=== PATIENT | female | born 1980 | race African-American/Black ===

== ENCOUNTER 2016-07-16 19:36 | Emergency (ER) | payer SELFPAY ==
[~2016-07-16] VITALS: Ht 162.6 cm; Wt 49.6 kg
[~2016-07-16 19:36] MED LIST: AMOX/K CLAV875 M1 PO; BUTALBITAL/ACETAMIN1 OR; KEFLEX500 M1 PO; NAPROSYN500 MG OR; NO HOME MEDS; PYRIDIUM200 MG PO; TRAMADOL HCL50 MG OR; ULTRAM50 M1 PO
[2016-07-16 21:50] LABS: HEMATOCRIT 21.4 % (37.0-47.0); IMMATURE GRANULOCYTES 1.3 % (0.0-1.0); MEAN CELL VOLUME 83.9 fL CALC (80.0-100.0); MEAN CORPUSCULAR HGB 27.1 pG CALC (26.0-32.0); MEAN CORPUSCULAR HGB CONC 32.2 g/L CALC (32.0-36.0); NEUT# 6.05 thou/uL (2.00-7.15); RED BLOOD COUNT 2.55 mill/uL (4.20-5.60); RED CELL DISTRI WIDTH 14.3 % (11.5-15.5)
[2016-07-16 21:52] LABS: ALBUMIN 3.4 g/dL (3.2-5.0); ALKALINE PHOSPHATASE 64 u/l (38-126); AMYLASE 113 u/l (30-110); ANION GAP 14 (6-22 (CALC)); BILIRUBIN, TOTAL 0.4 mg/dL (0.0-1.4); BUN 10 mg/dL (7-17); BUN/CREATININE RATIO 14 (12-20 (CALC)); CALCIUM 8.7 mg/dL (8.4-10.2); CARBON DIOXIDE 24 mmol/l (22-30); CHLORIDE 102 mmol/l (95-108); CREATININE 0.7 mg/dL (0.5-1.0); GFR > 60 ML/MIN (>=60 (CALC)); GFR FOR AFR.AMER. > 60 ML/MIN (>=60 (CALC)); GLUCOSE 97 mg/dL (65-105); LIPASE 360 u/l (23-300); POTASSIUM 3.6 mmol/l (3.5-5.1); SGOT/AST 36 u/l (14-36); SGPT/ALT 29 u/l (9-52); SODIUM 136 mmol/l (137-146); TOTAL PROTEIN 6.6 g/dL (6.3-8.2)
[2016-07-16 21:58] LABS: HEMOGLOBIN 6.9 g/dl (12.0-16.0)
[2016-07-16 23:09] LABS: URINE BILIRUBIN - DIPSTICK NEGATIVE (NEGATIVE); URINE BLOOD DIPSTICK NEGATIVE (NEGATIVE); URINE CLARITY SLIGHT CLOUDY; URINE COLOR YELLOW; URINE GLUCOSE - DIPSTICK NEGATIVE (NEGATIVE); URINE KETONE 15 mg/dL (NEGATIVE); URINE NITRITE - DIPSTICK NEGATIVE (Negative); URINE PROTEIN - DIPSTICK TRACE mg/dL (NEG-TRACE)
[2016-07-17 00:06] LABS: URINE BACTERIA MANY hpf; URINE LEUK ESTERASE SMALL (NEGATIVE); URINE RBC 0-2 RBC/hpf (0-5); URINE SQUAMOUS EPITHELIAL CELL FEW EPI/hpf (0-FEW)
[2016-07-17 01:34] VITALS: BP 105/53
== END 2016-07-17 01:19 | disposition short-term general hospital (02) | DRG 379 ==
LOC: ED 19:36
PROVIDERS: Emergency Medicine
DX: K92.2 Gastrointestinal hemorrhage, unspecified (principal); T18.8XXA Foreign body in other parts of alimentary tract, initial encounter; R10.11 Right upper quadrant pain; R11.0 Nausea
CPT/HCPCS: S0164

== ENCOUNTER 2018-09-12 19:11 | Emergency (ER) | payer SELFPAY ==
[~2018-09-12] VITALS: Ht 162.6 cm; Wt 49.0 kg
[2018-09-12 20:19] LABS: HEMATOCRIT 36.4 % (37.0-47.0); HEMOGLOBIN 12.1 g/dl (12.0-16.0); IMMATURE GRANULOCYTES 0.4 % (0.0-5.0); MEAN CELL VOLUME 92.6 fL CALC (80.0-100.0); MEAN CORPUSCULAR HGB 30.8 pG CALC (26.0-32.0); MEAN CORPUSCULAR HGB CONC 33.2 g/L CALC (32.0-36.0); NEUT# 4.71 thou/uL (2.00-7.15); RED BLOOD COUNT 3.93 mill/uL (4.20-5.60); RED CELL DISTRI WIDTH 12.5 % (11.5-15.5)
[2018-09-12 20:39] LABS: ALBUMIN 3.9 g/dL (3.2-5.0); ALKALINE PHOSPHATASE 67 u/l (38-126); AMYLASE 86 u/l (30-110); ANION GAP 12 (6-22 (CALC)); BUN 14 mg/dL (7-17); BUN/CREATININE RATIO 24 (12-20 (CALC)); CARBON DIOXIDE 23 mmol/l (22-30); CHLORIDE 107 mmol/l (95-108); CREATININE 0.6 mg/dL (0.5-1.0); GFR > 60 ML/MIN (>=60 (CALC)); GFR FOR AFR.AMER. > 60 ML/MIN (>=60 (CALC)); LIPASE 54 u/l (23-300); POTASSIUM 3.7 mmol/l (3.5-5.1); SGOT/AST 14 u/l (14-36); SODIUM 138 mmol/l (137-146); TOTAL PROTEIN 6.7 g/dL (6.3-8.2)
[2018-09-12 20:41] LABS: BILIRUBIN, TOTAL 1.1 mg/dL (0.0-1.4)
[2018-09-12 21:38] LABS: URINE BILIRUBIN - DIPSTICK NEGATIVE (NEGATIVE); URINE BLOOD DIPSTICK SMALL (NEGATIVE); URINE COLOR YELLOW; URINE GLUCOSE - DIPSTICK NEGATIVE (NEGATIVE); URINE KETONE 15 mg/dL (NEGATIVE); URINE LEUK ESTERASE NEGATIVE (NEGATIVE); URINE NITRITE - DIPSTICK NEGATIVE (Negative); URINE PH 5.5 (4.5-8.0); URINE PROTEIN - DIPSTICK NEGATIVE (NEG-TRACE)
[2018-09-12 21:52] LABS: URINE SQUAMOUS EPITHELIAL CELL FEW EPI/hpf (0-FEW)
[2018-09-12] MEDS ORDERED: PROTONIX40 MG PO (23:25)
[2018-09-12 23:32] VITALS: BP 99/60
== END 2018-09-12 23:32 | disposition home or self-care (01) | DRG 392 ==
LOC: ED 19:11
PROVIDERS: Family Medicine
DX: K29.70 Gastritis, unspecified, without bleeding (principal)
CPT/HCPCS: Q9967; S0164

== ENCOUNTER 2018-09-17 20:41 | Emergency (ER) | payer SELFPAY ==
[~2018-09-17] VITALS: Ht 162.6 cm; Wt 48.0 kg
[~2018-09-17 20:41] MED LIST changes: +PROTONIX40 MG PO
[2018-09-17 21:42] LABS: HEMATOCRIT 32.2 % (37.0-47.0); HEMOGLOBIN 10.8 g/dl (12.0-16.0); IMMATURE GRANULOCYTES 0.4 % (0.0-5.0); MEAN CORPUSCULAR HGB 30.9 pG CALC (26.0-32.0); MEAN CORPUSCULAR HGB CONC 33.5 g/L CALC (32.0-36.0); NEUT# 8.3 thou/uL (2.00-7.15); RED BLOOD COUNT 3.5 mill/uL (4.20-5.60); RED CELL DISTRI WIDTH 12.7 % (11.5-15.5)
[2018-09-17 21:44] LABS: URINE BLOOD DIPSTICK NEGATIVE (NEGATIVE); URINE GLUCOSE - DIPSTICK NEGATIVE (NEGATIVE); URINE KETONE TRACE mg/dL (NEGATIVE); URINE LEUK ESTERASE NEGATIVE (NEGATIVE); URINE NITRITE - DIPSTICK NEGATIVE (Negative); URINE PROTEIN - DIPSTICK 30 mg/dL (NEG-TRACE); URINE SPECIFIC GRAVITY >=1.030
[2018-09-17 21:46] LABS: URINE BILIRUBIN - DIPSTICK NEGATIVE (NEGATIVE); URINE COLOR DK. YELLOW
[2018-09-17 21:53] LABS: URINE MUCUS MANY hpf (NONE-FEW); URINE RBC 0-2 RBC/hpf (0-5); URINE SQUAMOUS EPITHELIAL CELL FEW EPI/hpf (0-FEW); URINE WBC 0-2 WBC/hpf (0-5)
[2018-09-17 21:59] LABS: ALKALINE PHOSPHATASE 72 u/l (38-126); AMYLASE 35 u/l (30-110); ANION GAP 16 (6-22 (CALC)); BILIRUBIN, TOTAL 0.7 mg/dL (0.0-1.4); BUN 21 mg/dL (7-17); BUN/CREATININE RATIO 35 (12-20 (CALC)); CARBON DIOXIDE 24 mmol/l (22-30); CHLORIDE 101 mmol/l (95-108); CREATININE 0.6 mg/dL (0.5-1.0); GFR > 60 ML/MIN (>=60 (CALC)); GFR FOR AFR.AMER. > 60 ML/MIN (>=60 (CALC)); LIPASE 34 u/l (23-300); POTASSIUM 3.8 mmol/l (3.5-5.1); SGOT/AST 12 u/l (14-36); SODIUM 137 mmol/l (137-146); TOTAL PROTEIN 6.8 g/dL (6.3-8.2)
[2018-09-18 00:47] LABS: PROTHROMBIN TIME 10.7 SECONDS (9.0-12.5)
[2018-09-18 05:33] VITALS: BP 91/73
== END 2018-09-18 05:28 | disposition short-term general hospital (02) | DRG 379 ==
LOC: ED 20:41
PROVIDERS: Emergency Medicine
DX: K92.2 Gastrointestinal hemorrhage, unspecified (principal); R19.5 Other fecal abnormalities; R11.10 Vomiting, unspecified; R10.9 Unspecified abdominal pain
CPT/HCPCS: S0164

== ENCOUNTER 2021-02-07 23:59 | Emergency (ER) | payer SELFPAY ==
[~2021-02-07] VITALS: Ht 162.6 cm; Wt 50.0 kg
[2021-02-08 00:48] LABS: HEMATOCRIT 33.3 % (37.0-47.0); HEMOGLOBIN 10.3 g/dl (12.0-16.0); IMMATURE GRANULOCYTES 0.5 % (0.0-5.0); MEAN CORPUSCULAR HGB 25.8 pG CALC (26.0-32.0); MEAN CORPUSCULAR HGB CONC 30.9 g/dL CAL (32.0-36.0); NEUT# 4.78 thou/uL (2.00-7.15); RED BLOOD COUNT 3.99 mill/uL (4.20-5.60)
[2021-02-08 00:49] LABS: URINE BILIRUBIN - DIPSTICK NEGATIVE (NEGATIVE); URINE BLOOD DIPSTICK TRACE-INTACT (NEGATIVE); URINE COLOR YELLOW; URINE GLUCOSE - DIPSTICK NEGATIVE (NEGATIVE); URINE KETONE 15 mg/dL (NEGATIVE); URINE LEUK ESTERASE NEGATIVE (NEGATIVE); URINE PROTEIN - DIPSTICK NEGATIVE (NEG-TRACE); URINE SPECIFIC GRAVITY 1.015; URINE UROBILINOGEN - DIPSTICK 0.2 E.U./dL (0.2)
[2021-02-08 00:51] LABS: MEAN CELL VOLUME 83.5 fL CALC (80.0-100.0)
[2021-02-08 00:54] LABS: URINE NITRITE - DIPSTICK NEGATIVE (Negative)
[2021-02-08 01:06] LABS: ALBUMIN 3.5 g/dL (3.2-5.0); ALKALINE PHOSPHATASE 61 u/l (38-126); AMYLASE 105 u/l (30-110); ANION GAP 10 (6-22 (CALC)); BILIRUBIN, TOTAL 0.6 mg/dL (0.0-1.4); BUN 11 mg/dL (7-17); BUN/CREATININE RATIO 17 (12-20 (CALC)); CARBON DIOXIDE 26 mmol/l (22-30); CHLORIDE 104 mmol/l (95-108); CREATININE 0.7 mg/dL (0.5-1.0); GFR > 60 ML/MIN (>=60 (CALC)); GFR FOR AFR.AMER. > 60 ML/MIN (>=60 (CALC)); LIPASE 100 u/l (23-300); POTASSIUM 4.3 mmol/l (3.5-5.1); SGOT/AST 18 u/l (14-36); SODIUM 136 mmol/l (137-146); TOTAL PROTEIN 6.8 g/dL (6.3-8.2)
[2021-02-08] MEDS ORDERED: ONDANSETRON4 MG PO (06:58)
[2021-02-08] MEDS ORDERED: ULTRAM50 M1 PO (06:58)
[2021-02-08] MEDS ORDERED: PREVACID30 M3 PO (06:58)
[2021-02-08 07:48] VITALS: BP 123/67
== END 2021-02-08 07:48 | disposition home or self-care (01) | DRG 392 ==
LOC: ED 23:59
PROVIDERS: Emergency Medicine
DX: K29.70 Gastritis, unspecified, without bleeding (principal); Z87.11 Personal history of peptic ulcer disease; Z20.822 Contact with and (suspected) exposure to COVID-19

== ENCOUNTER 2021-02-11 08:44 | Inpatient (IN) | payer SELFPAY ==
[~2021-02-11] VITALS: Ht 162.6 cm; Wt 62.0 kg
[2021-02-11] VITALS (8 sets, daily range): BP systolic 95–107; BP diastolic 55–69
[~2021-02-11 08:44] MED LIST changes: +ONDANSETRON4 MG PO; +PREVACID30 M3 PO
[2021-02-11 09:30] LABS: HEMATOCRIT 29.7 % (37.0-47.0); HEMOGLOBIN 9.2 g/dl (12.0-16.0); IMMATURE GRANULOCYTES 0.1 % (0.0-5.0); MEAN CELL VOLUME 85.6 fL CALC (80.0-100.0); MEAN CORPUSCULAR HGB 26.5 pG CALC (26.0-32.0); NEUT# 5.59 thou/uL (2.00-7.15); RED BLOOD COUNT 3.47 mill/uL (4.20-5.60); RED CELL DISTRI WIDTH 15.7 % (11.5-15.5)
[2021-02-11 09:32] LABS: URINE BILIRUBIN - DIPSTICK NEGATIVE (NEGATIVE); URINE BLOOD DIPSTICK NEGATIVE (NEGATIVE); URINE COLOR YELLOW; URINE GLUCOSE - DIPSTICK NEGATIVE (NEGATIVE); URINE KETONE NEGATIVE (NEGATIVE); URINE LEUK ESTERASE NEGATIVE (NEGATIVE); URINE PROTEIN - DIPSTICK NEGATIVE (NEG-TRACE); URINE SPECIFIC GRAVITY >=1.030; URINE UROBILINOGEN - DIPSTICK 0.2 E.U./dL (0.2)
[2021-02-11 09:35] LABS: URINE NITRITE - DIPSTICK NEGATIVE (Negative)
[2021-02-11 09:49] LABS: ALBUMIN 3.4 g/dL (3.2-5.0); ALKALINE PHOSPHATASE 57 u/l (38-126); AMYLASE 63 u/l (30-110); ANION GAP 11 (6-22 (CALC)); BILIRUBIN, TOTAL 0.5 mg/dL (0.0-1.4); BUN 8 mg/dL (7-17); BUN/CREATININE RATIO 13 (12-20 (CALC)); CARBON DIOXIDE 27 mmol/l (22-30); CHLORIDE 101 mmol/l (95-108); CREATININE 0.6 mg/dL (0.5-1.0); GFR > 60 ML/MIN (>=60 (CALC)); GFR FOR AFR.AMER. > 60 ML/MIN (>=60 (CALC)); LIPASE 104 u/l (23-300); POTASSIUM 3.8 mmol/l (3.5-5.1); SGOT/AST 17 u/l (14-36); SODIUM 136 mmol/l (137-146); TOTAL PROTEIN 6.5 g/dL (6.3-8.2)
[2021-02-11] MEDS ORDERED: ALEVE220 M1 PO (12:04)
[2021-02-11 19:56] LABS: HEMOGLOBIN 7.3 g/dl (12.0-16.0)
[2021-02-12] VITALS (12 sets, daily range): BP systolic 87–104; BP diastolic 49–63
[2021-02-12 05:57] LABS: HEMATOCRIT 22.4 % (37.0-47.0); HEMOGLOBIN 7.1 g/dl (12.0-16.0); IMMATURE GRANULOCYTES 0.6 % (0.0-5.0); MEAN CELL VOLUME 84.2 fL CALC (80.0-100.0); MEAN CORPUSCULAR HGB 26.7 pG CALC (26.0-32.0); MEAN CORPUSCULAR HGB CONC 31.7 g/dL CAL (32.0-36.0); NEUT# 5.85 thou/uL (2.00-7.15); RED BLOOD COUNT 2.66 mill/uL (4.20-5.60); RED CELL DISTRI WIDTH 15.9 % (11.5-15.5)
[2021-02-13 00:49] VITALS: BP 95/58
[2021-02-13 04:00] VITALS: BP 91/55
[2021-02-13 04:52] LABS: HEMATOCRIT 29.9 % (37.0-47.0); HEMOGLOBIN 9.9 g/dl (12.0-16.0)
[2021-02-13 07:00] VITALS: BP 94/59
[2021-02-13 15:48] VITALS: BP 101/50
[2021-02-13 18:38] LABS: HEMATOCRIT 32.8 % (37.0-47.0); HEMOGLOBIN 10.8 g/dl (12.0-16.0)
[2021-02-13 19:00] VITALS: BP 93/60
[2021-02-14 04:00] VITALS: BP 89/51
[2021-02-14] MEDS ORDERED: OMEPRAZOLE20 MG PO (07:14)
[2021-02-14 08:52] VITALS: BP 88/51
== END 2021-02-14 12:09 | disposition home or self-care (01) | DRG 379 ==
LOC: ED 08:44 → ORM 09:34 → MS2 13:36
PROVIDERS: Emergency Medicine; ADMIT Surgery; ATTEND Surgery
PROC: 0DJ08ZZ Inspection of Upper Intestinal Tract, Via Natural or Artificial Opening Endoscopic (ICD-10-PCS; principal; 2021-02-11)
PROC: 30233N1 Transfusion of Nonautologous Red Blood Cells into Peripheral Vein, Percutaneous Approach (ICD-10-PCS; 2021-02-12)
PROC: 30233N1 Transfusion of Nonautologous Red Blood Cells into Peripheral Vein, Percutaneous Approach (ICD-10-PCS; 2021-02-12)
DX: K25.4 Chronic or unspecified gastric ulcer with hemorrhage (principal); D64.9 Anemia, unspecified; K44.9 Diaphragmatic hernia without obstruction or gangrene; Z87.11 Personal history of peptic ulcer disease
CPT/HCPCS: P9016; S0164

== ENCOUNTER 2023-11-04 20:53 | Emergency (ER) | payer SELFPAY ==
[~2023-11-04] VITALS: Ht 162.6 cm; Wt 52.0 kg
[~2023-11-04 20:53] MED LIST changes: +ALEVE220 M1 PO; +OMEPRAZOLE20 MG PO
[2023-11-04] MEDS ORDERED: SODIUM CHLORIDE 0.9% 1,000 ML IV STA (21:15)
[2023-11-04] MEDS ORDERED: Pantoprazole Sodium 40 MG VIAL (Protonix) IV STA (21:15)
[2023-11-04] MEDS ORDERED: ONDANSETRON HCl 4 MG/2 ML SDV IV STA (21:15)
[2023-11-04] MEDS ORDERED: KETOROLAC TROMETHAMINE 15 MG/ML SDV IV STA (21:15)
[2023-11-04] MEDS ORDERED: FAMOTIDINE 10MG/ML 2ML SDV IV ONE (21:20)
[2023-11-04] MEDS ORDERED: DICYCLOMINE HCL 10 MG/CAP PO ONE (21:20)
[2023-11-04 21:50] LABS: BASO% 0.3 % (0-3); EOS% 0.3 % (0-8); IMMATURE GRANULOCYTES 0.1 % (0.0-5.0); LYMPH% 24.5 % (15-41); MEAN CELL VOLUME 82.4 fL CALC (80.0-100.0); MEAN CORPUSCULAR HGB 25.9 pG CALC (26.0-32.0); MEAN CORPUSCULAR HGB CONC 31.4 g/dL CAL (32.0-36.0); MONO% 7.3 % (2-13); NEUT# 5.38 thou/uL (2.00-7.15); NEUT% 67.5 % (42-76); RED BLOOD COUNT 4.25 mill/uL (4.20-5.60); RED CELL DISTRI WIDTH 15.2 % (11.5-15.5)
[2023-11-04 22:03] VITALS: BP 132/94
[2023-11-04 22:05] LABS: ALBUMIN 3.9 g/dL (3.2-5.0); BILIRUBIN, TOTAL 0.6 mg/dL (0.02-1.3); CREATININE 0.7 mg/dL (0.5-1.0); POTASSIUM 3.9 mmol/l (3.5-5.1); TOTAL PROTEIN 7.3 g/dL (6.3-8.2)
[2023-11-04 22:15] VITALS: BP 143/92
[2023-11-04 22:30] VITALS: BP 130/87
[2023-11-04 22:46] VITALS: BP 139/90
[2023-11-04] MEDS ORDERED: DIATRIZOATE MEGLUMINE & SODIUM 30 ML/BTL BTL PO ONE (22:55)
[2023-11-05] MEDS ORDERED: METOCLOPRAMIDE HCL 10 MG/2 ML SDV IV ONE (02:10)
[2023-11-05] MEDS ORDERED: OMEPRAZOLE DR40 MG PO (02:17)
[2023-11-05] MEDS ORDERED: PEPCID20 MG PO (02:17)
[2023-11-05] MEDS ORDERED: ZOFRAN4 MG/TAB PO (02:17)
[2023-11-05] MEDS ORDERED: REGLAN10 MG PO (02:17)
[2023-11-05 02:40] VITALS: BP 139/90
[2023-11-05] MEDS ORDERED: OMEPRAZOLE20 MG PO (12:24)
== END 2023-11-05 02:40 | disposition home or self-care (01) | DRG 446 ==
LOC: ED 20:53
PROVIDERS: Internal Medicine
DX: K80.20 Calculus of gallbladder without cholecystitis without obstruction (principal); Z87.11 Personal history of peptic ulcer disease
CPT/HCPCS: J2470; Q9967

== ENCOUNTER 2023-11-10 19:45 | Observation (INO) | payer SELFPAY ==
[~2023-11-10] VITALS: Ht 162.6 cm; Wt 49.8 kg
[~2023-11-10 19:45] MED LIST changes: +OMEPRAZOLE DR40 MG PO; +PEPCID20 MG PO; +REGLAN10 MG PO; +ZOFRAN4 MG/TAB PO
--- NOTE | 2023-11-10 20:39 | NUR ---
PT TO ER BED 5 FOR TRIAGE AT THIS TIME WITH AN EVEN AND STEADY GAIT IN NO APPARENT DISTRESS. CALL LIGHT WITHIN REACH AND PT AWAITING EDP EXAM.
[2023-11-10] MEDS ORDERED: Pantoprazole Sodium 40 MG VIAL (Protonix) IV STA (20:53)
[2023-11-10] MEDS ORDERED: PROMETHAZINE HCL 25 MG/ML AMP IV ONE (20:55)
[2023-11-10] MEDS ORDERED: KETOROLAC TROMETHAMINE 30 MG/ML SDV IV ONE (20:55)
--- NOTE | 2023-11-10 21:35 | NUR ---
PT SITTING IN RM AWAITING RESULTS AT THIS TIME. CALL LIGHT WITHIN REACH AND PT HAS NO NEEDS OR CONCERNS AT THIS TIME.
[2023-11-10 21:43] LABS: BASO% 0.2 % (0-3); EOS% 0.3 % (0-8); HEMOGLOBIN 10.9 g/dl (12.0-16.0); IMMATURE GRANULOCYTES 0.2 % (0.0-5.0); LYMPH% 18.1 % (15-41); MEAN CELL VOLUME 81.5 fL CALC (80.0-100.0); MEAN CORPUSCULAR HGB 26.1 pG CALC (26.0-32.0); MEAN CORPUSCULAR HGB CONC 32.1 g/dL CAL (32.0-36.0); MONO% 7.1 % (2-13); NEUT# 6.9 thou/uL (2.00-7.15); NEUT% 74.1 % (42-76); RED BLOOD COUNT 4.17 mill/uL (4.20-5.60); RED CELL DISTRI WIDTH 15.1 % (11.5-15.5)
[2023-11-10] MEDS ORDERED: SODIUM CHLORIDE 0.9% 1,000 ML IV STA (21:51)
[2023-11-10 21:55] LABS: BILIRUBIN, TOTAL 0.9 mg/dL (0.02-1.3); CREATININE 0.6 mg/dL (0.5-1.0); POTASSIUM 3.5 mmol/l (3.5-5.1); TOTAL PROTEIN 7.1 g/dL (6.3-8.2)
--- NOTE | 2023-11-10 22:41 | NUR ---
PT SITTING IN RM AWAITING RESULTS AT THIS TIME. CALL LIGHT WITHIN REACH AND PT HAS NO NEEDS OR CONCERNS AT THIS TIME.
--- NOTE | 2023-11-10 23:31 | NUR ---
PT SITTING IN RM AWAITING RESULTS AT THIS TIME. CALL LIGHT WITHIN REACH AND PT HAS NO NEEDS OR CONCERNS AT THIS TIME.
[2023-11-11] VITALS (18 sets, daily range): BP systolic 91–116; BP diastolic 31–72
[2023-11-11 00:30] LABS: URINE BILIRUBIN - DIPSTICK Negative (NEGATIVE); URINE BLOOD DIPSTICK Trace-lysed (NEGATIVE); URINE COLOR Yellow; URINE GLUCOSE - DIPSTICK Negative (NEGATIVE); URINE KETONE 80 mg/dL (NEGATIVE); URINE LEUK ESTERASE Moderate (NEGATIVE); URINE PROTEIN - DIPSTICK Negative (NEG-TRACE); URINE SPECIFIC GRAVITY 1.015
[2023-11-11 00:31] LABS: URINE NITRITE - DIPSTICK Negative (Negative)
[2023-11-11] MEDS ORDERED: KETOROLAC TROMETHAMINE 30 MG/ML SDV IV PRN (00:35)
[2023-11-11] MEDS ORDERED: FAMOTIDINE 10MG/ML 2ML SDV IV PRN (00:35)
[2023-11-11] MEDS ORDERED: PROMETHAZINE HCL 25 MG/ML AMP IV PRN (00:35)
[2023-11-11] MEDS ORDERED: ONDANSETRON HCl 4 MG/2 ML SDV IV PRN (00:35)
[2023-11-11] MEDS ORDERED: MORPHINE SULFATE 4 MG/ML VIAL IV PRN (00:35)
[2023-11-11] MEDS ORDERED: DEXTROSE 5% / 0.9% NACL 1,000 ML IV PRN (00:35)
[2023-11-11 00:40] LABS: URINE EPITHELIAL CELLS MODERATE EPI/hpf (0-FEW)
[2023-11-11 00:41] LABS: URINE BACTERIA MODERATE hpf
--- NOTE | 2023-11-11 00:45 | NUR ---
PT RESTING IN RM AWAITING ADMISSION AT THIS TIME WITH NO COMPLAINTS OR CONCERNS. CALL JULIANA VERGARA.
--- NOTE | 2023-11-11 01:08 | NUR ---
REPORT GIVEN TO ROMA RUSSELL AND PT TO BE TRANSPORTED TO MED SURG RM 279. PT RESTING IN RM. CALL LIGHT WITHIN REACH AND PT HAS NO NEEDS OR CONCERNS.
--- NOTE | 2023-11-11 01:38 | NUR ---
Admission Note Report Given to: ROMA RUSSELL Transported by: X Wheelchair Stretcher Transported with: Nurse X Transporter X Patent IV O2 Form Building Supervisor Location: ICU X [facility]
--- NOTE | 2023-11-11 02:26 | NUR ---
RECEIVED REPORT FROM NURSE MATTHIAS PINO TRANSPORTED VIA WHEELCHAIR, ARRIVED MS UNIT AT 0140, P[ATIENT ALERT ORIENTED AMBULATORY, PATIENT IV ON LFA G 20 STARTED D5NS AT 200CC/HR PER ORDER INFUSING WELL, PATIENT C/O CRAMPING ABDOMINAL PAIN UNRELIEVED BY TORADOL, WILL MEDICATE, PATIENT INSTRUCTED ON NPO DIET, ADMISSION ASSESSMENT COMPLETED, PATIENT ORIENTED TO ROOM AND AND CALL [employer].
--- NOTE | 2023-11-11 04:50 | NUR ---
PATIENTR RESTING IN BED, REMAINS NPO, BREATHING EVN UNLABORED CALL LIGHT IN REACHED.
[2023-11-11] MEDS ORDERED: SODIUM CHLORIDE 1,000 ML BTL IR ONE (07:39)
[2023-11-11] MEDS ORDERED: STERILE WATER FOR IRRIGATION 1,000 ML BTL IR ONE (07:39)
[2023-11-11] MEDS ORDERED: LIDOcaine HCl 1% (Local Anesth.) 20 ML VIAL ONE (07:39)
[2023-11-11] MEDS ORDERED: PROPOFOL 200 MG/20 ML VIAL IV ONE (07:50)
[2023-11-11] MEDS ORDERED: LIDOCAINE HCL 2% 2ML SDV IV ONE (07:50)
[2023-11-11] MEDS ORDERED: SUGAMMADEX SODIUM 200 MG/2 ML SDV IV ONE (07:50)
[2023-11-11] MEDS ORDERED: ROCURONIUM BROMIDE 10 MG/ML 5ML VIAL IV ONE (07:50)
[2023-11-11] MEDS ORDERED: LACTATED RINGER'S 1,000 ML BAG IV ONE (07:50)
[2023-11-11] MEDS ORDERED: SUCCINYLCHOLINE CHLORIDE 20 MG/ML 10ML VIAL IV ONE (07:50)
--- NOTE | 2023-11-11 07:50 | NUR ---
REPORT RECEIVED FROM ROMA VALDEZ. PT RESTING IN BED ON RIGHT SIDE WATCHING CELL PHONE. ALERT AND ORIENTED X 3. C/O 7/10 CRAMPING TO LUQ OF ABDOMEN. DENIES SOB AND NAUSEA. RESPIRATIONS EVEN AND UNLABORED ON ROOM AIR. IV FLUIDS INFUSING AT 200ML/HR; IV SITE APPEARS HEALTHY. PREPARRED PT FOR OR; AMBUALTORY TO BATHROOM TO VOID. PLAN OF CARE REVIEWED. PT ENCOURAGED TO VERBALIZE CONCERNS; STATES UNDERSTANDING. SAFETY MEASURES IN PLACE; CALL LIGHT WITHIN REACH.
--- NOTE | 2023-11-11 08:26 | NUR ---
ROMA LUIS FROM OR AT BEDSIDE. PT OFF UNIT VIA STRETCHER FOR KEYSHA MONSIVAIS.
[2023-11-11] MEDS ORDERED: ceFAZolin Sodium 2 GM/VIAL SDV ONE (08:57)
[2023-11-11] MEDS ORDERED: FAMOTIDINE 10MG/ML 2ML SDV IV ONE (08:57)
[2023-11-11] MEDS ORDERED: SODIUM CHLORIDE 0.9% 100 ML IV ONE (08:57)
[2023-11-11] MEDS ORDERED: PERCOCET 5/325M1 TAB PO (09:20)
[2023-11-11] MEDS ORDERED: HYDROmorphone HCL 2 MG/AMP IV PRN (09:25)
[2023-11-11] MEDS ORDERED: oxyCODONE 5MG/ ACETAMINOPHEN 325MG TAB PO PRN (09:25)
[2023-11-11] MEDS ORDERED: ACETAMINOPHEN 100 ML IV ONE (10:29)
--- NOTE | 2023-11-11 10:56 | NUR ---
BACK TO ROOM; BEDSIDE REPORT RECEIVED FROM ROMA LUIS. PT DROWSY/ORIENTED. C/O 09/30 TENDERNESS TO ABDOMEN; 4 INCISIONS PRESENT WITH DERMABOND. RESPIRATIOSN EVEN AND UNLABORED ON ROOM AIR. SCD'S APPLIED TO BLE. IS AT BEDSIDE. IV FLUIDS INFUSING PER ORDERS; IV SITE APPEARS HEALTHY. CALL LIGHT WITHIN REACH. WILL CONTINUE TO MONITOR.
[2023-11-11] MEDS ORDERED: KETOROLAC TROMETHAMINE 15 MG/ML SDV IV SCH (12:00)
--- NOTE | 2023-11-11 12:55 | NUR ---
IV SITE INFILTRATED; FLUIDS DISCONTINUED AND IV REMOVED. 2 ATTEMPTS UNSUCCESSFUL. TORADOL GIVEN IM PER DR. RIVAS. PERCOCET GIVEN FOR 7/10 ABDOMINAL PAIN. VISITORS AT BEDSIDE. PT SITTING UP EATING SNACK; C/O MILD NAUSEA.
--- NOTE | 2023-11-11 16:22 | NUR ---
PT REPORTS THAT SHE HER ABDOMINAL PAIN IS SEVERE 11/30 AND SHE IS NOT READY TO BE DISCHARGED; DR. RIVAS NOTIFIED; PT TO STAY OVERNIGHT. NEW IV SITE STARTED TO RIGHT WRIST. PT DECLINES DILAUDID AND REQUESTS TO HAVE PERCOCET WHEN IT IS DUE. EDUCATED ON SPLINTING DURING COUGHING AND ON INCENTIVE SPIROMETER; ENCOURAGED TO USE WHILE AWAKE; DEMONSTRATED UNDERSTANDING; ACHIEVED 1500 ON SPIROMETER. SCDS'S REMAIN IN PLACE. NO OTHER NEEDS AT THIS TIME. CALL LIGHT WITHIN REACH.
--- NOTE | 2023-11-11 20:00 | NUR ---
RECEIVED REPORT FROM NURSE ELLISON, PATIENT RESTING IN BED, PATIENT S/P LAP LOI, C/O PAIN CRAMPING PAIN ABDOMEN PS 10/30 WILL MEDICATE, PATIENT IV ON RT WRIST PATENT FLUSHES WELL, PATIENT DENIES NAUSEA/ VOMITING, LAP SITES COVERED WITH DERMABOND CDI, REINFORCED THE USE OF INCENTIVE SPIROMETER 1500 INSPIRATORY VOLUME, PATIENT ON SCD, CALL LIGHT IN REACHED.
--- NOTE | 2023-11-11 20:04 | NUR ---
C/O CRAMPING PAIN ON ABDOMEN PS 7/10, PRN DILAUDID GIVEN AT THIS TIME.
--- NOTE | 2023-11-12 | NUR ---
DUE IV TORADOL GIVE, BP RECHECKED RECORDED. BREATHING UNLABORED CALL LIGHT IN RAECHED.
[2023-11-12 03:43] VITALS: BP 102/47
--- NOTE | 2023-11-12 04:00 | NUR ---
PATIENT RESTING IN BED, NOT IN DISTRESS, BREATHING EVEN UNLABORED, CALL LIGHT IN REACHED,
[2023-11-12 04:19] VITALS: BP 102/47
--- NOTE | 2023-11-12 07:13 | NUR ---
PATIENT LAYING IN BED. PATIENT A&OX4 AND ABLE TO MAKE KNOWN. PATIENT ABDOMEN SOFT AND TENDER AT THE 4 LAP SITES, RESPIRATIONS EVEN UNLABORED, PEDAL PULSES PRESENT. PATIENT DENIES ANY NEEDS AT THIS TIME. WILL CONTINUE TO MONITOR.
[2023-11-12 07:15] VITALS: BP 113/66
[2023-11-12] MEDS ORDERED: PERCOCET 5/325M1 TAB PO (09:51)
--- NOTE | 2023-11-12 11:59 | NUR ---
PATIENT SITTING UP IN BED, HAVING LUNCH. PATIENT DENIES ANY NEEDS AT THIS TIME. WILL CONTINUE TO MONITOR.
--- NOTE | 2023-11-12 12:14 | NUR ---
Discharge instructions given. Patient verbalizes understanding of same. Discharged in stable condition via Wheelchair to Home with staff. All belongings sent with pt. PATIENT IV REMOVED AND PATIENT TOLERATED WELL.
== END 2023-11-12 12:07 | disposition home or self-care (01) | DRG 419 ==
LOC: ED 19:45 → ED-I 11-11 00:15 → ED 11-11 00:34 → MS2 11-11 00:35
PROVIDERS: Family Medicine; ADMIT Surgery; ATTEND Surgery
PROC: 0FT44ZZ Resection of Gallbladder, Percutaneous Endoscopic Approach (ICD-10-PCS; principal; 2023-11-11)
DX: K80.10 Calculus of gallbladder with chronic cholecystitis without obstruction (principal); Z87.11 Personal history of peptic ulcer disease
CPT/HCPCS: G0378; J0131; J0690; J2470

== ENCOUNTER 2023-12-04 07:05 | Day surgery (SDC) | payer SELFPAY ==
[~2023-12-04] VITALS: Ht 162.6 cm; Wt 49.4 kg
[~2023-12-04 07:05] MED LIST changes: +PERCOCET 5/325M1 TAB PO
[2023-12-04] MEDS ORDERED: FAMOTIDINE 10MG/ML 2ML SDV IV ONE (07:14)
[2023-12-04] MEDS ORDERED: ceFAZolin Sodium 2 GM/VIAL SDV ONE (07:14)
[2023-12-04] MEDS ORDERED: LACTATED RINGER'S 1,000 ML IV ONE (07:14)
[2023-12-04] MEDS ORDERED: SODIUM CHLORIDE 0.9% 100 ML IV ONE (07:14)
[2023-12-04] MEDS ORDERED: STERILE WATER FOR IRRIGATION 1,000 ML BTL IR ONE (09:56)
[2023-12-04] MEDS ORDERED: LIDOcaine HCl 1% (Local Anesth.) 20 ML VIAL ONE (09:56)
[2023-12-04] MEDS ORDERED: SODIUM CHLORIDE 0.9% 1,000 ML IV ONE (09:56)
[2023-12-04] MEDS ORDERED: ACETAMINOPHEN 100 ML IV ONE (09:59)
[2023-12-04 10:30] VITALS: BP 108/70
[2023-12-04] MEDS ORDERED: ONDANSETRON HCl 4 MG/2 ML SDV IV ONE (12:51)
[2023-12-04] MEDS ORDERED: ROCURONIUM BROMIDE 10 MG/ML 5ML VIAL IV ONE (12:51)
[2023-12-04] MEDS ORDERED: LIDOCAINE HCL 2% 2ML SDV IV ONE (12:51)
[2023-12-04] MEDS ORDERED: DEXAMETHASONE SODIUM PHOSPHATE PF 10 MG/ML SDV IV ONE (12:51)
[2023-12-04] MEDS ORDERED: PROPOFOL 200 MG/20 ML VIAL IV ONE (12:51)
[2023-12-04] MEDS ORDERED: KETOROLAC TROMETHAMINE 30 MG/ML SDV IV ONE (12:51)
[2023-12-04] MEDS ORDERED: SUGAMMADEX SODIUM 200 MG/2 ML SDV IV ONE (12:51)
[2023-12-04] MEDS ORDERED: MIDAZOLAM HCL 2 MG/2 ML VIAL IV ONE (12:51)
== END 2023-12-04 10:46 | disposition home or self-care (01) | DRG 355 ==
LOC: ORM 07:05
PROVIDERS: ATTEND Surgery
PROC: 0WQF0ZZ Repair Abdominal Wall, Open Approach (ICD-10-PCS; principal; 2023-12-04)
DX: K43.2 Incisional hernia without obstruction or gangrene (principal); Z90.49 Acquired absence of other specified parts of digestive tract
CPT/HCPCS: J0131; J0690; J1100

== ENCOUNTER 2024-06-02 06:06 | Emergency (ER) | payer SELFPAY ==
[~2024-06-02] VITALS: Ht 162.6 cm; Wt 52.0 kg
[2024-06-02] MEDS ORDERED: AMOXICILLIN & POT CLAVULANATE 875 MG/TAB PO ONE (06:20)
[2024-06-02] MEDS ORDERED: Diph, Acellular Pertussis, Tet 0.5 ML/VIAL (Tdap) SDV IM ONE (06:20)
[2024-06-02] MEDS ORDERED: AMOX/K CLAV875 M1 PO (06:34)
[2024-06-02 06:44] VITALS: BP 112/75
== END 2024-06-02 07:12 | disposition home or self-care (01) | DRG 605 ==
LOC: ED 06:06
DX: S71.152A Open bite, left thigh, initial encounter (principal); W54.0XXA Bitten by dog, initial encounter; Y92.410 Unspecified street and highway as the place of occurrence of the external cause
CPT/HCPCS: 90715